=== PATIENT | female | born 1990 | race Caucasian/White ===

== ENCOUNTER 2018-11-01 13:09 | Emergency (ER) | payer MEDICAID ==
[~2018-11-01] VITALS: Wt 69.2 kg
[2018-11-01 13:13] VITALS: BP 138/92; PULSE 102; RESP 18
[2018-11-01] MEDS ORDERED: AMOX500C2 PO ×2 (15:01→15:22)
[2018-11-01] MEDS ORDERED: IBUP-1542 PO (15:01)
--- NOTE | 2018-11-01 15:02 | ERD ---
ER Documentation Chief Complaint Chief Complaint SORE THROAT, EAR ACHE HPI 28-year-old female presents with fever and sore throat and body aches for the last 4 days. She also has left ear pain. She denies cough, vomiting or abdominal pain. Denies neck stiffness or rashes. She denies sick contacts. He is taking some leftover antibiotics from a previous infection. She is taking 3 days of Augmentin without relief. ROS All systems reviewed and are negative except as per history of present illness. Medications Home Meds Active Scripts Amoxicillin* (Amoxicillin*) 500 Mg Cap, 500 MG PO TID for 10 Days, CAP Prov:SHANTEL GONZALEZ MD 11/01/18 Prednisone* (Prednisone*) 20 Mg Tab, 40 MG PO DAILY for 4 Days, TAB Prov:SHANTEL GONZALEZ MD 11/01/18 Ibuprofen* (Motrin*) 600 Mg Tab, 600 MG PO Q6, #15 TAB Prov:SHANTEL GONZALEZ MD 11/01/18 Discontinued Scripts Amoxicillin* (Amoxicillin*) 500 Mg Cap, 500 MG PO TID for 10 Days, CAP Prov:SHANTEL GONZALEZ MD 11/01/18 FmHx Family History: No diabetes, No coronary disease, No other Physical Exam Vitals Vital Signs Date Temp Pulse Resp B/P (MAP) Pulse Ox O2 O2 Flow FiO2 Time Delivery Rate 11/01/18 98.2 102 18 138/92 99 13:13 (107) Physical Exam Const: No acute distress Head: Atraumatic Eyes: Normal Conjunctiva ENT: Normal External Ears, Nose and Mouth. TMs normal. Tonsils 3+ with exudate and erythema. Uvula midline and airway patent. Neck: Full range of motion. No meningismus. Resp: Clear to auscultation bilaterally Cardio: Regular rate and rhythm, no murmurs Abd: Soft, non tender, non distended. Normal bowel sounds Skin: No petechiae or rashes Back: No midline or flank tenderness Ext: No cyanosis, or edema Neur: Awake and alert Psych: Normal Mood and Affect Procedures/MDM Patient presents with signs and symptoms of exudative pharyngitis without signs of abscess, airway obstruction, additional complications. She may have viral pharyngitis and patient was counseled although given partial treatment with Luly diaz, we will continue treatment she will treated with amoxicillin, ibuprofen, short course of prednisone for lymphadenitis, primary care follow-up and return precautions. The patient was stable with no new complaints during the ER course. Clinically, there is no current evidence to suggest meningitis, sepsis, acute abdomen, pneumonia, stroke, acute coronary syndrome, pulmonary embolism, aortic dissection or any other emergent condition appearing to require further evaluation or hospitalization. Patient counseled regarding my diagnostic impression and care plan. Prior to discharge all questions answered. Pt agrees with treatment plan and understands strict return precautions. Pt is instructed to follow up with primary care provider within 24-48 hours. Precautionary instructions provided including instructions to return to the ER if not improving or for any worsening or changing symptoms or concerns. Disclaimer: Inadvertent spelling and grammatical errors are likely due to EHR/dictation software use and do not reflect on the overall quality of patient care. Also, please note that the electronic time recorded on this note does not necessarily reflect the actual time of the patient encounter. Departure Diagnosis: Primary Impression: Sore throat Condition: Stable Patient Instructions: Pharyngitis, Strep (Presumed) Additional Instructions: Recheck for new or worsening symptoms with primary care doctor. SHANTEL GONZALEZ MD November 01, 2018 15:02
[2018-11-01] MEDS ORDERED: PRED20TA PO (15:18)
== END 2018-11-01 15:47 | disposition home or self-care (01) ==
LOC: FTE 13:09
DX: J02.9 Acute pharyngitis, unspecified (principal)
CPT/HCPCS: 99283